=== PATIENT | male | born 1950 | race Caucasian/White ===

== ENCOUNTER 2016-07-21 08:47 | Day surgery (SDC) | payer MEDICARE, OTHER ==
[2016-07-10 08:06] VITALS: BP 138/78
[~2016-07-21] VITALS: Ht 180.3 cm; Wt 63.0 kg
[~2016-07-21 08:47] MED LIST: BUPIVACAINE/PF-EPI 0.5% 1:200K ONE; NONE PER PT
[2016-07-21] MEDS ORDERED: LACTATED RINGERS 1,000 ML IV SCH ×2 (09:08→11:32)
[2016-07-21] MEDS ORDERED: FENTANYL PF 250 MCG/5ML ONE (09:27)
[2016-07-21] MEDS ORDERED: MIDAZOLAM 1 MG/ML, 2ML ONE (09:27)
[2016-07-21] MEDS ORDERED: ACETAMINOPHEN 325 MG TABLET PO PRN (09:30)
[2016-07-21] MEDS ORDERED: LIDOCAINE 1%, 2ML SQ PRN (09:30)
[2016-07-21] MEDS ORDERED: PROMETHAZINE 25 MG/ML, 1ML IV PRN (09:30)
[2016-07-21] MEDS ORDERED: OXYcodone 5 MG/5 ML ORAL.SOL UDC PO PRN ×2 (09:30→12:00)
[2016-07-21] MEDS ORDERED: PROPOFOL 10 MG/ML, 20ML ONE (10:30)
[2016-07-21] MEDS ORDERED: GLYCOPYRROLATE 0.2MG/1ML ONE (10:30)
[2016-07-21] MEDS ORDERED: ONDANSETRON 2MG/ML, 2ML ONE (10:30)
[2016-07-21] MEDS ORDERED: CEFAZOLIN 1,000 MG ONE (10:30)
[2016-07-21] MEDS ORDERED: KETOROLAC 30 MG/1 ML ONE (10:30)
[2016-07-21] MEDS ORDERED: DEXAMETHASONE 4 MG/ML, 1ML ONE (10:30)
[2016-07-21] MEDS ORDERED: ROCURONIUM 10 MG/ML ONE (10:30)
[2016-07-21] MEDS ORDERED: BUPIVACAINE/PF-EPI 0.5% 1:200K ONE (10:46)
[2016-07-21] MEDS ORDERED: HYDROmorphone 2 MG/ML, 1ML IVPush PRN (12:00)
[2016-07-21] MEDS ORDERED: ONDANSETRON 2MG/ML, 2ML IVPush PRN (12:00)
[2016-07-21] MEDS ORDERED: OXYcodone 5 MG/5 ML ORAL.SOL UDC ONE (12:01)
[2016-07-21] MEDS ORDERED: FENTANYL PF 100 MCG/2ML ONE (12:04)
[2016-07-21] MEDS: FENTANYL PF 100 MCG/2ML IV PRN ×2 (12:05→12:18)
== END 2016-07-21 14:40 | disposition home or self-care (01) ==
LOC: OUT 08:47
PROVIDERS: ATTEND Surgery
DX: K40.20 Bilateral inguinal hernia, without obstruction or gangrene, not specified as recurrent (principal); D17.6 Benign lipomatous neoplasm of spermatic cord; Z72.89 Other problems related to lifestyle; Z82.0 Family history of epilepsy and other diseases of the nervous system
CPT/HCPCS: 49650; C1781; J0690; J1100; J1885; J2405; J2704; J3010; J7120; J2250; J3490